=== PATIENT | female | born 1965 | race Caucasian/White ===

== ENCOUNTER 2017-11-03 01:41 | Emergency (ER) | payer OTHER ==
[2017-11-03] MEDS ORDERED: HYDROmorphONE/DILAUDID 1 MG/ML INJ IVP ONE (02:11)
[2017-11-03] MEDS ORDERED: NS 1,000 ML IV ONE (02:11)
[2017-11-03] MEDS ORDERED: ONDANSETRON 4 MG/2 ML VIAL IVP ONE (02:11)
--- NOTE | 2017-11-03 02:14 | EDPHY ---
H & P Stated Complaint: c/o severe abd cramping x 2 hrs, no other sx Time Seen by Provider: 11/03/17 02:05 HPI/ROS: Chief Complaint: Abdominal pain HPI: 51-year-old woman who is 4 days status post endometrial biopsy had the sudden onset of severe lower abdominal pain this morning. Some nausea but no vomiting. No diarrhea or constipation recently. She initially had some vaginal spotting after the biopsy but this has ended. No fevers or chills. Does not have a history of prior abdominal surgeries. Pain is about a 9/10. There are no aggravating or alleviating factors. No urinary urgency or frequency. Patient had the endometrial biopsy for abdominal vaginal bleeding. ROS: 10 point Review of Systems is negative except as noted in the HPI. PMH: Denies Medications: control Social History: No smoking, occasional alcohol, no recreational drug use Family History: non-contributory Physical Exam: Gen: Awake, Alert, uncomfortable appearing HEENT: Nose: no rhinorrhea Eyes: PERRLA, EOMI Mouth: Moist mucosa Neck: Supple, no JVD Chest: nontender, lungs clear to auscultation Heart: S1, S2 normal, no murmur Abd: Soft, lower abdominal and pelvic tenderness with guarding Back: no CVA tenderness, no midline tenderness Ext: no edema, non-tender Skin: no rash Neuro: CN II-XII intact, Sensation grossly intact, Strength 5/5 in bilateral upper and lower extremities - Personal History Tetanus Vaccine Date: within 10 years - Medical/Surgical History Hx Asthma: No Hx Chronic Respiratory Disease: No Hx Diabetes: No Hx Cardiac Disease: No Hx Renal Disease: No Hx Cirrhosis: No Hx Alcoholism: No Hx HIV/AIDS: No Hx Splenectomy or Spleen Trauma: No Other PMH: none - Social History Smoking Status: Never smoked Constitutional: Initial Vital Signs Heart Rate 70 11/03/17 01:45 Respiratory Rate 18 11/03/17 01:45 Blood Pressure 101/66 11/03/17 01:45 O2 Sat (%) 100 11/03/17 01:45 O2 Delivery Mode Room Air Allergies/Adverse Reactions: No Known Allergies Allergy (Verified 11/03/17 01:47) Home Medications: Medication Instructions Recorded Bcp 12/14/10 Medical Decision Making - Diagnostics Imaging Results: CT scan of the abdomen pelvis shows endometrial hemorrhage with 4.4 cm x 3 cm heterogenous and hyperdense endometrium. There is nonvisualized appendix. There is moderate about a stool consistent with constipation. There is no free fluid. There is no free air. Study interpreted by Dr. Jaramillo. Imaging: Discussed imaging studies w/ yardage caller Radiologist ED Course/Re-evaluation: CT scan noted. No acute surgical process noted. She does have some endometrial hemorrhage with hyper dense endometrium. No free air. No free fluid. Patient's pain is significantly improved after IV Dilaudid. Case discussed with AUSTYN Wallace substation operator chief for Dr. Sherman. She agrees with plan for the patient to follow up in the office in the next 2 days. She does not feel any further diagnostic testing is important. They can perform ultrasound in the office as necessary. - Data Points Laboratory Results: Laboratory Results 11/03/17 02:02 11/03/17 02:02 11/03/17 11/03/17 11/03/17 02:14 02:02 02:02 WBC RBC Hgb Hct MCV MCH MCHC RDW Plt Count MPV Neut % (Auto) Lymph % (Auto) [place] % (Auto) Eos % (Auto) Baso % (Auto) Nucleat RBC Rel Count Absolute Neuts (auto) Absolute Lymphs (auto) Absolute Monos (auto) Absolute Eos (auto) Absolute Basos (auto) Absolute Nucleated RBC Immature Gran % Immature Gran # Sodium 144 mEq/L mEq/L (135-145) Potassium 3.9 mEq/L mEq/L (3.5-5.2) Chloride 112 mEq/L H mEq/L (97-110) Carbon Dioxide 19 mEq/l L mEq/l (22-31) Anion Gap 13 mEq/L mEq/L (8-16) BUN 14 mg/dL mg/dL (7-23) Creatinine 0.7 mg/dL mg/dL (0.6-1.0) Estimated GFR > 60 Glucose 114 mg/dL H mg/dL (70-100) Calcium 9.4 mg/dL mg/dL (8.5-10.4) Total Bilirubin 0.3 mg/dL mg/dL (0.1-1.4) AST 24 IU/L IU/L (14-46) ALT 26 IU/L IU/L (9-52) Alkaline Phosphatase 43 IU/L IU/L (38-126) Total Protein 7.5 g/dL g/dL (6.3-8.2) Albumin 4.4 g/dL g/dL (3.5-5.0) Lipase 150 IU/L IU/L (23-300) Beta HCG, Qual NEGATIVE Urine Color YELLOW Urine Appearance CLEAR Urine pH 5.0 (5.0-7.5) Ur Specific [place] 1.012 (1.002-1.030) Urine Protein NEGATIVE (NEGATIVE) Urine Ketones NEGATIVE (NEGATIVE) Urine Blood NEGATIVE (NEGATIVE) Urine Nitrate NEGATIVE (NEGATIVE) Urine Bilirubin NEGATIVE (NEGATIVE) Urine Urobilinogen NEGATIVE EU EU (0.2-1.0) Ur Leukocyte Esterase NEGATIVE (NEGATIVE) Urine Glucose NEGATIVE (NEGATIVE) 11/03/17 02:02 WBC 5.19 10^3/uL 10^3/uL (3.80-9.50) RBC 3.80 10^6/uL L 10^6/uL (4.18-5.33) Hgb 12.3 g/dL L g/dL (12.6-16.3) Hct 35.9 % L % (38.0-47.0) MCV 94.5 fL fL (81.5-99.8) MCH 32.4 pg pg (27.9-34.1) MCHC 34.3 g/dL g/dL (32.4-36.7) RDW 12.4 % % (11.5-15.2) Plt Count 206 10^3/uL 10^3/uL (150-400) MPV 9.5 fL fL (8.7-11.7) Neut % (Auto) 63.7 % % (39.3-74.2) Lymph % (Auto) 26.8 % % (15.0-45.0) [place] % (Auto) 5.4 % % (4.5-13.0) Eos % (Auto) 2.9 % % (0.6-7.6) Baso % (Auto) 1.0 % % (0.3-1.7) Nucleat RBC Rel Count 0.0 % % (0.0-0.2) Absolute Neuts (auto) 3.31 10^3/uL 10^3/uL (1.70-6.50) Absolute Lymphs (auto) 1.39 10^3/uL 10^3/uL (1.00-3.00) Absolute Monos (auto) 0.28 10^3/uL L 10^3/uL (0.30-0.80) Absolute Eos (auto) 0.15 10^3/uL 10^3/uL (0.03-0.40) Absolute Basos (auto) 0.05 10^3/uL 10^3/uL (0.02-0.10) Absolute Nucleated RBC 0.00 10^3/uL 10^3/uL (0-0.01) Immature Gran % 0.2 % % (0.0-1.1) Immature Gran # 0.01 10^3/uL 10^3/uL (0.00-0.10) Sodium Potassium Chloride Carbon Dioxide Anion Gap BUN Creatinine Estimated GFR Glucose Calcium Total Bilirubin AST ALT Alkaline Phosphatase Total Protein Albumin Lipase Beta HCG, Qual Urine Color Urine Appearance Urine pH Ur Specific [place] Urine Protein Urine Ketones Urine Blood Urine Nitrate Urine Bilirubin Urine Urobilinogen Ur Leukocyte Esterase Urine Glucose Medications Given: Discontinued Medications Hydromorphone HCl (Dilaudid) 0.5 mg IVP EDNOW ONE Stop: 11/03/17 02:12 Last Admin: 11/03/17 02:20 Dose: 0.5 mg Sodium Chloride (Ns) 1,000 mls @ 0 mls/hr IV ONCE ONE; Wide Open PRN Reason: Protocol Stop: 11/03/17 02:12 Last Admin: 11/03/17 02:20 Dose: 1,000 mls Ondansetron HCl (Zofran) 4 mg IVP EDNOW ONE Stop: 11/03/17 02:12 Last Admin: 11/03/17 02:21 Dose: 4 mg Departure - Departure Disposition: Home, Routine, Self-Care Clinical Impression: Abdominal pain Condition: Good Instructions: Acute Abdominal Pain (ED) Additional Instructions: Follow up with Dr. Sherman in 2-3 days for further evaluation. Return to the emergency department for increasing pain, fevers, chills, nausea, vomiting, or any other concerns. Referrals: Jina Pringle MD [Primary Care Provider] - As per Instructions
[2017-11-03] MEDS ORDERED: HYDROmorphONE/DILAUDID 2 MG/ML INJ ONE (02:15)
[2017-11-03 02:24] LABS: PLATELET COUNT 206 10^3/uL (150-400)
[2017-11-03] MEDS ORDERED: IOPAMIDOL (ISOVUE-300) 100 ML BTL ONE (02:55)
[2017-11-03 04:05] VITALS: BP 118/67
== END 2017-11-03 04:23 | disposition home or self-care (01) ==
DX: R10.30 Lower abdominal pain, unspecified (principal); E86.9 Volume depletion, unspecified
CPT/HCPCS: 96374; J1170; J2405; Q9967